=== PATIENT | male | born 1980 | race African-American/Black ===

== ENCOUNTER 2021-08-19 08:43 | Inpatient (IN) | payer MEDICAID ==
[~2021-08-19] VITALS: Ht 185.4 cm; Wt 103.4 kg
[2021-08-19] MEDS ORDERED: SODIUM CHLORIDE 0.9% 1,000 ML IV ONE ×2 (09:15→11:45)
[2021-08-19 09:59] LABS: BASOPHILS % 0.3 % (0.0-2.0); EOSINOPHILS % 1.8 % (0.0-5.0); HEMOGLOBIN. 16.1 g/dL (14.0-18.0); LYMPHOCYTES % 17.6 % (20.0-50.0); MEAN CORPUSCULAR VOLUME 89.3 fL (80.0-94.0); MEAN PLATELET VOLUME 7.1 fl (7.4-10.4); MONOCYTES % 13.5 % (2.0-8.0); NEUTROPHILS % 66.8 % (40.0-76.0); PLATELET 341 x1000/uL (130-400); RED BLOOD CELL COUNT 5.37 mill/uL (4.7-6.1); RED CELL DISTRIBUTION WIDTH 13.8 % (11.6-14.6)
[2021-08-19 10:04] LABS: CHLORIDE 111 mEq/L (98-107)
[2021-08-19] MEDS ORDERED: METRONIDAZOLE 500 MG PREMIX 100 ML IV ONE (11:45)
[2021-08-19] MEDS ORDERED: LEVOFLOXACIN 750MG PREMIX 150 ML IV ONE (11:45)
[2021-08-19] MEDS ORDERED: METRONIDAZOLE 500MG TABLET PO SCH (12:40)
[2021-08-19] MEDS ORDERED: IOHEXOL-300 100 ML BOTTLE ONE (12:44)
[2021-08-19 13:21] LABS: CLARITY URINE CLEAR (CLEAR); COLOR URINE YELLOW (YELLOW); KETONES URINE NEGATIVE (NEGATIVE); LEUKOCYTE ESTERASE URINE NEGATIVE (NEGATIVE); NITRITE URINE NEGATIVE (NEGATIVE); OCCULT BLOOD URINE NEGATIVE (NEGATIVE); PH URINE 5.5 (4.5-8.0); PROTEIN URINE TRACE (NEGATIVE); SPECIFIC GRAVITY URINE 1.052 (1.005-1.030); UROBILINOGEN URINE 0.2 E.U./dL (0.2-1.0)
[2021-08-20] VITALS: BP_SYST 103; BP_SYST 116; BP_DIAS 65; BP_DIAS 79
[2021-08-20 04:00] VITALS: BP 102/71
[2021-08-20] MEDS ORDERED: BICT1TAB PO (05:49)
[2021-08-20 08:00] VITALS: BP 121/83
[2021-08-20] MEDS ORDERED: ACETAMINOPHEN 325MG TABLET PO PRN (10:15)
[2021-08-20] MEDS ORDERED: ONDANSETRON HCL 4MG/2ML INJ IV PRN (10:15)
[2021-08-20] MEDS: METRONIDAZOLE 500MG TABLET PO SCH ×3 (10:42→22:53)
[2021-08-20] MEDS: DEXT 5%/0.45% NACL 1000ML 1,000 ML IV SCH ×2 (10:42→22:54)
[2021-08-20] MEDS ORDERED: NALOXONE HCL 0.4MG/ML VIAL IV PRN (11:00)
[2021-08-20] MEDS ORDERED: HYDROMORPHONE HCL/PF 2MG/ML CPJ IV PRN (11:00)
[2021-08-20 12:00] VITALS: BP 126/80
[2021-08-20] MEDS: LEVOFLOXACIN 500MG PREMIX 100 ML IV SCH (12:51)
[2021-08-20] MEDS ORDERED: METRONIDAZOLE 500 MG PREMIX 100 ML IV SCH (14:00)
[2021-08-20 16:00] VITALS: BP 126/73
[2021-08-20 20:00] VITALS: BP 115/74
[2021-08-21] VITALS: BP 105/74
[2021-08-21 04:00] VITALS: BP 119/54
[2021-08-21] MEDS: METRONIDAZOLE 500MG TABLET PO SCH ×3 (05:50→20:20)
[2021-08-21 07:28] LABS: BASOPHILS % 0.3 % (0.0-2.0); EOSINOPHILS % 0.8 % (0.0-5.0); HEMATOCRIT. 42.8 % (42.0-52.0); HEMOGLOBIN. 14.6 g/dL (14.0-18.0); MEAN CORPUSCULAR HEMOGLOBIN 30.3 pg (28.0-32.0); MEAN CORPUSCULAR VOLUME 88.6 fL (80.0-94.0); MEAN PLATELET VOLUME 7.2 fl (7.4-10.4); MONOCYTES % 13.7 % (2.0-8.0); NEUTROPHILS % 69.2 % (40.0-76.0); PLATELET 347 x1000/uL (130-400); RED BLOOD CELL COUNT 4.83 mill/uL (4.7-6.1); RED CELL DISTRIBUTION WIDTH 13.7 % (11.6-14.6)
[2021-08-21 07:42] LABS: CHLORIDE 108 mEq/L (98-107)
[2021-08-21 08:00] VITALS: BP 112/63
[2021-08-21 12:00] VITALS: BP 118/80
[2021-08-21] MEDS: LEVOFLOXACIN 500MG PREMIX 100 ML IV SCH (12:57)
[2021-08-21] MEDS: DEXT 5%/0.45% NACL 1000ML 1,000 ML IV SCH (13:00)
[2021-08-21 16:00] VITALS: BP 123/86
[2021-08-21 20:00] VITALS: BP 103/60
[2021-08-22] VITALS: BP 103/68
[2021-08-22] MEDS: DEXT 5%/0.45% NACL 1000ML 1,000 ML IV SCH (02:52)
[2021-08-22 04:00] VITALS: BP 126/64
[2021-08-22] MEDS: METRONIDAZOLE 500MG TABLET PO SCH (05:31)
[2021-08-22 07:15] LABS: CHLORIDE 109 mEq/L (98-107)
[2021-08-22 07:37] LABS: BASOPHILS % 0.4 % (0.0-2.0); EOSINOPHILS % 0.9 % (0.0-5.0); HEMATOCRIT. 41.7 % (42.0-52.0); HEMOGLOBIN. 14.2 g/dL (14.0-18.0); LYMPHOCYTES % 19.3 % (20.0-50.0); MEAN CORPUSCULAR HEMOGLOBIN 30.3 pg (28.0-32.0); MEAN CORPUSCULAR VOLUME 88.8 fL (80.0-94.0); MEAN PLATELET VOLUME 7.1 fl (7.4-10.4); MONOCYTES % 13.9 % (2.0-8.0); NEUTROPHILS % 65.5 % (40.0-76.0); PLATELET 350 x1000/uL (130-400); RED CELL DISTRIBUTION WIDTH 13.8 % (11.6-14.6)
[2021-08-22 11:38] VITALS: BP 124/64
[2021-08-24 04:07] LABS: OVA & PARASITE EXAM Final report (.)
== END 2021-08-22 13:00 | disposition home or self-care (01) | DRG 892 ==
LOC: ER 08:43 → 8WST 12:51 → EDBEDREQTM 12:53 → EDBEDREQ 12:53 → ENRESERV 21:37
PROVIDERS: ADMIT Hospitalist; ATTEND Hospitalist
DX: A08.4 Viral intestinal infection, unspecified (principal); B20 Human immunodeficiency virus [HIV] disease; N17.9 Acute kidney failure, unspecified; K56.7 Ileus, unspecified; B89 Unspecified parasitic disease; F12.90 Cannabis use, unspecified, uncomplicated; E86.0 Dehydration; K52.9 Noninfective gastroenteritis and colitis, unspecified; N18.9 Chronic kidney disease, unspecified; M25.539 Pain in unspecified wrist; Z88.0 Allergy status to penicillin
CPT/HCPCS: 36415; 71045; 74018; 74177; 80048; 80053; 81003; 83605; 84145; 85025; 87015; 87045; 87177; 87209; 87427; 87449; 87493; 89055; 93005; 99291; J1956; J3490; J7030; Q9967

== ENCOUNTER 2022-05-19 10:32 | Emergency (ER) | payer MEDICAID, OTHER ==
[~2022-05-19] VITALS: Ht 170.2 cm; Wt 80.0 kg
[~2022-05-19 10:32] MED LIST: BICT1TAB PO
[2022-05-19 10:56] VITALS: BP 126/84
[2022-05-19] MEDS ORDERED: BACITRACIN/POLYMYXIN B SULFATE OINT 15GM TOP ONE (11:30)
[2022-05-19 11:56] LABS: BG BASE EXCESS -1.2 mmol/L (-2.0-2.0); BG CARBOXYHEMOGLOBIN 0.8 % (0.5-1.5); BG DEOXYHEMOGLOBIN 7.5 % (0.0-5.0); BG FRACTION INSPIRED OXYGEN 21; BG HCO3 ACT 23.7 mmol/L (22.0-26.0); BG METHEMOGLOBIN 0.1 % (0.0-1.5); BG OXYGEN SATURATION 92.4 % (92.0-98.5); BG OXYHEMOGLOBIN 91.6 % (94.0-97.0); BG PCO2 40.6 mmHg (35.0-45.0); BG PH 7.384 (7.350-7.450); BG PO2 66.3 mmHg (75.0-100.0); BG SAMPLE SITE LEFT RADIAL; BG TOTAL HEMOGLOBIN 14.8 g/dL (12.0-18.0); BG VENT MODE ROOM AIR
[2022-05-19 13:24] LABS: BASOPHILS % 0.7 % (0.0-2.0); EOSINOPHILS % 3.3 % (0.0-5.0); HEMATOCRIT. 45.1 % (42.0-52.0); LYMPHOCYTES % 27.5 % (20.0-50.0); MEAN CORPUSCULAR HEMOGLOBIN 29.8 pg (28.0-32.0); MEAN CORPUSCULAR VOLUME 89.9 fL (80.0-94.0); MONOCYTES % 10.5 % (2.0-8.0); PLATELET 248 x1000/uL (130-400); RED BLOOD CELL COUNT 5.02 mill/uL (4.7-6.1); RED CELL DISTRIBUTION WIDTH 14.4 % (11.6-14.6)
[2022-05-19 13:43] LABS: CHLORIDE 111 mEq/L (98-107)
== END 2022-05-19 14:03 | disposition home or self-care (01) ==
LOC: ER 10:32
DX: T24.001A Burn of unspecified degree of unspecified site of right lower limb, except ankle and foot, initial encounter (principal); X08.8XXA Exposure to other specified smoke, fire and flames, initial encounter; Y93.89 Activity, other specified; Y92.89 Other specified places as the place of occurrence of the external cause; Y99.8 Other external cause status; N17.9 Acute kidney failure, unspecified; M79.661 Pain in right lower leg
CPT/HCPCS: 36415; 36600; 80053; 82375; 82805; 83880; 84484; 85025; 93005; 93971; 99285

== ENCOUNTER 2022-07-07 01:18 | Emergency (ER) | payer MEDICAID, OTHER ==
[~2022-07-07] VITALS: Ht 185.4 cm; Wt 101.1 kg
[2022-07-07] MEDS ORDERED: ACETAMINOPHEN 325MG TABLET PO STA (01:40)
[2022-07-07] MEDS ORDERED: SODIUM CHLORIDE 0.9% 1,000 ML IV ONE (01:45)
[2022-07-07] MEDS ORDERED: LORAZEPAM 1MG TABLET PO ONE (01:45)
[2022-07-07 03:17] LABS: BASOPHILS % 0.3 % (0.0-2.0); EOSINOPHILS % 1.5 % (0.0-5.0); HEMATOCRIT. 42.9 % (42.0-52.0); HEMOGLOBIN. 14.1 g/dL (14.0-18.0); LYMPHOCYTES % 22.8 % (20.0-50.0); MEAN CORPUSCULAR HEMOGLOBIN 29.4 pg (28.0-32.0); MEAN CORPUSCULAR VOLUME 89.3 fL (80.0-94.0); MEAN PLATELET VOLUME 6.9 fl (7.4-10.4); MONOCYTES % 10.3 % (2.0-8.0); NEUTROPHILS % 65.1 % (40.0-76.0); PLATELET 285 x1000/uL (130-400); RED BLOOD CELL COUNT 4.81 mill/uL (4.7-6.1); RED CELL DISTRIBUTION WIDTH 13.3 % (11.6-14.6)
[2022-07-07 03:24] LABS: CHLORIDE 103 mEq/L (98-107)
[2022-07-07] MEDS ORDERED: LORA-249 MT (04:41)
[2022-07-07 05:25] VITALS: BP 110/73
== END 2022-07-07 05:28 | disposition home or self-care (01) ==
LOC: ER 01:18
DX: F41.9 Anxiety disorder, unspecified (principal); R50.9 Fever, unspecified; F32.A Depression, unspecified; R00.0 Tachycardia, unspecified; Z59.00 Homelessness unspecified; Z21 Asymptomatic human immunodeficiency virus [HIV] infection status; Z88.0 Allergy status to penicillin
CPT/HCPCS: 36415; 71045; 80053; 83605; 85025; 87040; 93005; 96360; 99285; J7030